=== PATIENT | female | born 1990 | race Caucasian/White ===

== ENCOUNTER 2022-08-04 18:25 | Inpatient (IN) | payer BC ==
[~2022-08-04 18:25] MED LIST: Iopamidol 300 61% 100 ML VIAL FS ONE
[2022-08-04 19:39] LABS: Bilirubin Neg (Negative); Blood, Urine 250 (Negative); Clarity Mucous (Clear); Glucose, Urine (Dipstick) Normal (Negative); Ketone, Urine Negative (Negative); Leukocyte 500 (Negative); Nitrite Positive (Negative); Protein, Urine (Dipstick) 100 mg/dl (Neg-Trace); Urobilinogen Normal mg/dL (Less than 2)
[2022-08-04 19:44] LABS: Bacteria/HPF 3+ HPF (None Seen); RBC/HPF 0-3 HPF (0-3); Squamous Epithelial 0-3 HPF (0-3); WBC/HPF 21-50 HPF (0-3)
[2022-08-04 19:51] LABS: #Basophils 0.1 10x3/uL (0.0-0.2); #Monocytes 2.1 10x3/uL (0.0-1.1); #Neutrophils 12.8 10x3/uL (1.5-8.4); %Basophils 0.3 % (0.0-2.0); %Eosinophils 0.1 % (0.0-6.0); %Lymphocytes 5.4 % (18.0-47.0); %Neutrophils 80.7 % (40.0-75.0); Hemoglobin 11.9 g/dL (12.0-15.5); Mean Corpuscular Hemoglobin 30.9 pg (27.0-33.0); Mean Corpuscular Volume 90.9 fl (81.6-98.3); Mean Platelet Volume 9.3 fl (7.4-10.4); Platelet Count 214 10x3/uL (150-450); RBC Distribution Width 11.9 % (11.5-14.5); Red Blood Cell (RBC) Count 3.85 10x6/uL (3.90-5.03); White Blood Cell (WBC) Count 15.8 10x3/uL (3.5-10.5)
[2022-08-04] MEDS ORDERED: Ketorolac Tromethamine 30 MG/ML VIAL ONE (19:53)
[2022-08-04 20:07] LABS: ALT (SGPT) 14 U/L (8-55); AST (SGOT) 15 U/L (5-34); Albumin 3.6 g/dL (3.5-5.0); Alkaline Phosphatase 53 U/L (40-110); Anion Gap 11 mmol/L (10-20); BUN (Urea Nitrogen) 17 mg/dL (7.0-18.7); Bilirubin, Total 0.4 mg/dL (0.2-1.2); Calc. Creatinine Clearance 0 mL/min (70-130); Calcium 8.7 mg/dL (7.8-10.44); Carbon Dioxide 22 mmol/L (22-29); Chloride 106 mmol/L (98-107); Estimated GFR 60; Globulin 2.9 g/dL (2.4-3.5); Glucose 122 mg/dL (70-105); Potassium 3.8 mmol/L (3.5-5.1); Protein, Total 6.5 g/dL (6.0-8.3); Sodium 135 mmol/L (136-145)
[2022-08-04] MEDS ORDERED: cefTRIAXone\\ROCEPHIN 1 GM VIAL ONE (20:25)
[2022-08-04] MEDS ORDERED: Guaifenesin DM 100-10/5 ML UDCUP PO PRN (21:19)
[2022-08-04] MEDS ORDERED: HYDROcodone/Acetaminophen 5/325 mg Tablet PO PRN (21:19)
[2022-08-04] MEDS ORDERED: Calcium Carbonate 500 MG ChewTAB PO PRN (21:19)
[2022-08-04] MEDS ORDERED: Zolpidem Tartrate 5 MG TAB PO PRN (21:19)
[2022-08-04] MEDS ORDERED: Ketorolac Tromethamine 30 MG/ML VIAL IVP PRN (21:22)
[2022-08-04] MEDS ORDERED: Lactated Ringer's 1,000 ML IV SCH (21:30)
[2022-08-04] MEDS ORDERED: Aspirin 325 MG TAB ONE (21:57)
[2022-08-04 23:16] VITALS: BMI 25.0
[2022-08-04] MEDS ORDERED: Lactated Ringer's 500 ML IV SCH (23:30)
[2022-08-04] MEDS ORDERED: Cefepime 2 GM in Sodium Chloride 0.9% 100 ML IVPB SCH (23:59)
[2022-08-04] MEDS ORDERED: Vancomycin HCl 1 GM in Sodium Chloride 0.9% 250 ML 250 ML IVPB SCH (23:59)
[2022-08-05] MEDS: Morphine 2 MG/ML VIAL SLOW IVP PRN (00:12)
[2022-08-05] MEDS: Ondansetron PF 4 MG/2 ML Vial IVP PRN (00:30)
[2022-08-05] MEDS ORDERED: Cefepime 2 GM in Sodium Chloride 0.9% 100 ML IVPB SCH (02:00)
[2022-08-05] MEDS ORDERED: FLU VACC QS2022-23(6MOS UP)/PF 60 MCG/0.5 ML SYRINGE IM ONE (02:00)
[2022-08-05 05:01] LABS: SARS-CoV-2 NAA Rapid Test Not Detected (NotDetected)
[2022-08-05 05:21] LABS: Hemoglobin 11.4 g/dL (12.0-15.5); Mean Corpuscular HGB CONC 33.4 g/dL (32.0-36.0); Mean Corpuscular Hemoglobin 31.1 pg (27.0-33.0); Mean Corpuscular Volume 92.9 fl (81.6-98.3); Mean Platelet Volume 9.6 fl (7.4-10.4); Platelet Count 209 10x3/uL (150-450); RBC Distribution Width 11.9 % (11.5-14.5); Red Blood Cell (RBC) Count 3.67 10x6/uL (3.90-5.03); White Blood Cell (WBC) Count 17.6 10x3/uL (3.5-10.5)
[2022-08-05 05:28] LABS: Anion Gap 10 mmol/L (10-20); BUN (Urea Nitrogen) 13 mg/dL (7.0-18.7); Calc. Creatinine Clearance 86 mL/min (70-130); Calcium 8.1 mg/dL (7.8-10.44); Carbon Dioxide 20 mmol/L (22-29); Chloride 111 mmol/L (98-107); Estimated GFR 67; Glucose 132 mg/dL (70-105); Potassium 4.3 mmol/L (3.5-5.1); Sodium 137 mmol/L (136-145)
[2022-08-05 05:48] LABS: MDiff Complete? YES
[2022-08-05 06:30] LABS: Band 3 % (5-11); Lymphocytes 10 % (21-51); Monocytes 13 % (0-10); Neutrophil 74 % (42-75)
[2022-08-05 06:32] LABS: Microcytosis SLIGHT = 6-15 cells (100X) (0-5/hpf)
[2022-08-05 06:33] LABS: Platelet Morphology Comment Appears Adequate
[2022-08-05] MEDS: Acetaminophen 325 MG TAB PO PRN ×2 (08:29→16:07)
[2022-08-05] MEDS: Sodium Chloride 0.9% 1,000 ML IV SCH ×2 (10:50→17:26)
[2022-08-05] MEDS: Saccharomyces boulardii 250 MG CAP PO SCH (11:59)
[2022-08-05] MEDS: Senokot S 8.6-50 MG TAB PO SCH ×2 (11:59→21:20)
[2022-08-05] MEDS: Polyethylene Glycol 3350 17 GM Packet PO SCH (12:01)
[2022-08-05] MEDS: Cefepime 2 GM in Sodium Chloride 0.9% 100 ML IVPB SCH (14:16)
[2022-08-05] MEDS ORDERED: Bisacodyl 10 MG SUPP PR PRN (17:36)
[2022-08-06] MEDS: Cefepime 2 GM in Sodium Chloride 0.9% 100 ML IVPB SCH (02:59)
[2022-08-06] MEDS: Acetaminophen 325 MG TAB PO PRN (03:07)
[2022-08-06] MEDS: Sodium Chloride 0.9% 1,000 ML IV SCH (03:16)
[2022-08-06 03:57] LABS: #Eosinphils 0.1 10x3/uL (0.0-0.5); #Monocytes 1.4 10x3/uL (0.0-1.1); #Neutrophils 8.3 10x3/uL (1.5-8.4); %Basophils 0.3 % (0.0-2.0); %Eosinophils 0.8 % (0.0-6.0); %Lymphocytes 12.9 % (18.0-47.0); %Monocytes 12.6 % (0.0-10.0); %Neutrophils 73.1 % (40.0-75.0); Hemoglobin 10.8 g/dL (12.0-15.5); Mean Corpuscular Hemoglobin 30.6 pg (27.0-33.0); Mean Corpuscular Volume 92.6 fl (81.6-98.3); Mean Platelet Volume 9.6 fl (7.4-10.4); Platelet Count 197 10x3/uL (150-450); RBC Distribution Width 12.2 % (11.5-14.5); Red Blood Cell (RBC) Count 3.53 10x6/uL (3.90-5.03); White Blood Cell (WBC) Count 11.4 10x3/uL (3.5-10.5)
[2022-08-06 04:08] LABS: Anion Gap 13 mmol/L (10-20); BUN (Urea Nitrogen) 9 mg/dL (7.0-18.7); Calc. Creatinine Clearance 124 mL/min (70-130); Calcium 8.5 mg/dL (7.8-10.44); Carbon Dioxide 22 mmol/L (22-29); Chloride 108 mmol/L (98-107); Estimated GFR 103; Glucose 110 mg/dL (70-105); Potassium 4.1 mmol/L (3.5-5.1); Sodium 139 mmol/L (136-145)
[2022-08-06] MEDS: Morphine 2 MG/ML VIAL SLOW IVP PRN (04:09)
[2022-08-06] MEDS: Ondansetron PF 4 MG/2 ML Vial IVP PRN (04:10)
[2022-08-06] MEDS: Saccharomyces boulardii 250 MG CAP PO SCH (08:33)
[2022-08-06] MEDS: Polyethylene Glycol 3350 17 GM Packet PO SCH (08:33)
[2022-08-06] MEDS: Senokot S 8.6-50 MG TAB PO SCH (08:44)
[2022-08-06 11:04] VITALS: BP 110/60; TEMP 97.9
== END 2022-08-06 13:39 | disposition home or self-care (01) | DRG 872 ==
LOC: CSHERS 18:25 → CSHPP 22:56 → OBSVTOIN 22:57
PROVIDERS: ADMIT Student in an Organized Health Care Education/Training Program; ATTEND Hospitalist
DX: A41.9 Sepsis, unspecified organism (principal); N10 Acute pyelonephritis; E86.0 Dehydration; K59.01 Slow transit constipation; Z98.890 Other specified postprocedural states
CPT/HCPCS: 36415; 74177; 80048; 80053; 81003; 81015; 83605; 84443; 85025; 87040; J0692; J0696; J1885; J2272; J2405; J3370; J3490; J7050; J7120; Q9967; U0002

== ENCOUNTER 2024-03-15 08:16 | Outpatient (CLI) | payer BC | END 2024-03-15 08:17 | disposition home or self-care (01) | LOC: CSHSLEEP 08:16 | PROVIDERS: ATTEND Family Medicine | DX: G47.33 Obstructive sleep apnea (adult) (pediatric) (principal); R53.83 Other fatigue; G47.00 Insomnia, unspecified | CPT/HCPCS: 95811 ==